=== PATIENT | female | born 1995 | race Caucasian/White ===

== ENCOUNTER 2021-10-25 20:24 | Emergency (ER) | payer OTHER ==
[~2021-10-25] VITALS: Ht 167.6 cm; Wt 147.9 kg
[2021-10-25] MEDS ORDERED: EPINEPHRINE (1:1000) 1 MG/ML AMPUL ONE (20:32)
[2021-10-25] MEDS ORDERED: ONDANSETRON HCL/PF 4 MG/2 ML VIAL ONE (20:34)
[2021-10-25] MEDS ORDERED: methylPREDNISolone SOD SUCC 125 MG/2ML VIAL ONE (20:35)
[2021-10-25] MEDS ORDERED: FAMOTIDINE/PF INJ 20 MG/2 ML VIAL IV ONE ×2 (20:36→21:00)
[2021-10-25] MEDS ORDERED: ALBUTEROL FS 2.5 MG/0.5 ML VIAL.NEB ONE (20:44)
--- NOTE | 2021-10-25 20:49 | NUR ---
RT AT BEDSIDE
--- NOTE | 2021-10-25 20:57 | NUR ---
MARCIE FINISHED WITH Bx TREATMENT
[2021-10-25] MEDS ORDERED: EPINEPHRINE (1:1000) MDV 30 MG/30ML VIAL IM ONE (21:00)
[2021-10-25] MEDS ORDERED: methylPREDNISolone SOD SUCC 125 MG/2ML VIAL IV ONE (21:00)
[2021-10-25] MEDS ORDERED: ALBUTEROL FS 2.5 MG/0.5 ML VIAL.NEB NEB ONE (21:00)
[2021-10-25] MEDS ORDERED: ONDANSETRON HCL/PF - ER 4 MG/2 ML VIAL IV ONE (21:00)
[2021-10-25] MEDS ORDERED: EPIN0.3P3 IM (21:20)
[2021-10-25] MEDS ORDERED: PRED20TA PO (21:20)
--- NOTE | 2021-10-25 21:27 | NUR ---
Patient does not wish to proceed with medical care recommended by Dr. LITTLEJOHN. Patient given information related to possible complications, up to and including , which could occur as a result of leaving the hospital at this time. Patient verbalizes understanding of risks involved due to leaving against medical advice. Patient has signed AMA form.
[2021-10-25 23:59] VITALS: BP 127/82
== END 2021-10-26 00:48 | disposition home or self-care (01) ==
LOC: ER 20:26
DX: T78.2XXA Anaphylactic shock, unspecified, initial encounter (principal); Z79.899 Other long term (current) drug therapy
CPT/HCPCS: 99291; 96374; 96375; 96372; 94799; 94640; J0171 ×2; J3490; J2930; J2405 ×2